=== PATIENT | male | born 2000 | race Caucasian/White ===

== ENCOUNTER 2023-08-28 19:47 | Emergency (ER) | payer OTHER, SELFPAY ==
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
[2023-08-28 19:59] VITALS: BP 150/77; PULSE 96; RESP 18; TEMP 36.8; O2SAT 100
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
[2023-08-28 22:13] VITALS: BP 136/83; PULSE 86; RESP 16; O2SAT 99
== END 2023-08-28 22:14 | disposition home or self-care (01) ==
LOC: ANHED 21:49
PROVIDERS: Emergency Provider Student in an Organized Health Care Education/Training Program; PCP Family Medicine Adolescent Medicine
DX: S16.1XXA Strain of muscle, fascia and tendon at neck level, initial encounter (principal); V49.3XXA Car occupant (driver) (passenger) injured in unspecified nontraffic accident, initial encounter
CPT/HCPCS: 72125; 72128; 99284